=== PATIENT | female | born 1960 | race African-American/Black ===

== ENCOUNTER 2019-11-02 10:51 | Emergency (ER) | payer OTHER, SELFPAY ==
[2019-11-02 11:00] VITALS: BP 135/83; PULSE 63; RESP 18; TEMP 38.1; O2SAT 100
--- NOTE | 2019-11-02 12:10 | ED.URI ---
HPI - URI/Sore Throat General Chief Complaint: Upper Respiratory Infection Stated Complaint: Cough,Dizzy Source: patient Mode of arrival: ambulatory Limitations: no limitations History of Present Illness HPI Narrative: Patient is a 59-year-old female who presents complaining of cough, body aches, chills x1 day. She denies shortness of breath, denies chest pain, denies nausea, vomiting or diarrhea. She reports decreased p.o. intake. She denies taking aemm-kev-rzuqcum medications for symptom relief at this time. MD elicited complaint: cough Related Data Home Medications Medication Instructions Recorded Confirmed apixaban [Eliquis] 5 mg PO BID 08/09/19 11/02/19 atorvastatin 10 mg PO DAILY 11/02/19 11/02/19 losartan 100 mg PO DAILY 11/02/19 11/02/19 metformin 500 mg PO DAILY 11/02/19 11/02/19 metoprolol succinate 25 mg PO DAILY 11/02/19 11/02/19 Allergies Allergy/AdvReac Type Severity Reaction Status Date / Time lisinopril Allergy Intermediate Cough Verified 11/02/19 11:40 Review of Systems Review of Systems: Narrative: CONSTITUTIONAL: Denies fever, chills, or sweats. EYES: Denies visual changes, redness, or discharge. ENT: Denies rhinorrhea, congestion, sore throat, or otalgia. CARDIOVASCULAR: Denies chest pain, palpitations, or edema. RESPIRATORY: Reports cough, denies dyspnea. GASTROINTESTINAL: Denies abdominal pain, nausea, vomiting, or diarrhea. GENITOURINARY: Denies dysuria or hematuria. SKIN: Denies rash or itching. MUSCULOSKELETAL: Denies back pain, joint pain, or myalgia. NEUROLOGIC: Denies headache, numbness, dizziness, or weakness. PSYCHIATRIC: Denies anxiety or depression. ON LICENSE OF [facility] Past Medical History Medical History (Updated 11/02/19 @ 12:16 by ELMA Gray) A-fib Asthma Hypertension Surgical History Surgical History H/O cardiac radiofrequency ablation Social History Social History (Updated 11/02/19 @ 12:12 by ELMA Gray) Smoking status: Never smoker Alcohol intake: never Substance use: never Gender identity (if verbalized by the patient): Female Exam Narrative: Exam Narrative: GENERAL: Well-appearing, well-nourished, and in no acute distress. HEAD: Normocephalic, atraumatic. EYES: EOMI. No redness or drainage. Conjunctiva are normal. ENT: Mucous membranes pink and moist. Nares clear. No rhinorrhea. TMs normal bilaterally. Throat normal. Uvula midline. NECK: AROM. Supple. No lymphadenopathy. CHEST: No respiratory distress. Clear to auscultation. HEART: Regular rate and rhythm. No murmur appreciated. Normal peripheral pulses. SKIN: Warm, dry, no rash. NEURO: No focal deficits. Alert and oriented x3. Gait steady. PSYCH: Normal affect. No signs of depression or anxiety. Course Vital Signs Vital signs: Vital Signs Temperature 38.1 C H 11/02/19 11:00 Pulse Rate 63 11/02/19 11:00 Respiratory Rate 18 11/02/19 11:00 Blood Pressure 135/83 11/02/19 11:00 Pulse Oximetry 100 11/02/19 11:00 Temperature 38.1 C H 11/02/19 11:00 Pulse Rate 63 11/02/19 11:00 Respiratory Rate 18 11/02/19 11:00 Blood Pressure 135/83 11/02/19 11:00 Pulse Oximetry 100 11/02/19 11:00 Reviewed. Patient has been instructed to follow-up with her PCP regarding her blood pressure. MDM - URI/Sore Throat MDM Narrative Medical decision making narrative: Patient's influenza is negative. Patient most likely has viral illness. Patient cough to be treated as well as patient encouraged to Differential Diagnosis Differential diagnosis: Likely upper respiratory infection, viral infection and bronchitis Lab Data Labs: Influenza A Screen Negative Reference Range: Negative Influenza B Screen Negative Reference Range: Negative Critical Care Time Critical Care Time Critical Care Time: No Discharge Plan Discharge Clinical Impression: Upper respiratory in
== END 2019-11-02 12:21 | disposition home or self-care (01) ==
PROVIDERS: Emergency Provider Nurse Practitioner; PCP Family Medicine
DX: J06.9 Acute upper respiratory infection, unspecified (principal); I48.91 Unspecified atrial fibrillation; J45.909 Unspecified asthma, uncomplicated; I10 Essential (primary) hypertension
CPT/HCPCS: 87804; 99213; G0463

== ENCOUNTER 2020-06-16 16:27 | Emergency (ER) | payer OTHER, SELFPAY ==
[2020-06-16 16:37] VITALS: BP 141/75; PULSE 80; RESP 18; TEMP 36.9; O2SAT 100
[2020-06-16 16:43] VITALS: BP 141/75; PULSE 80; RESP 18; TEMP 36.9; O2SAT 100
--- NOTE | 2020-06-16 16:48 | ED.EAR ---
HPI - Ear Problem General Chief complaint: Ear Stated complaint: Left Ear Time Seen by Provider: 06/16/20 16:48 Source: patient and RN notes reviewed Mode of arrival: ambulatory Limitations: no limitations History of Present Illness HPI Narrative: 60-year-old female presents with concern for feeling of fluid in her left ear for several days. Reports yesterday 1 week history of nasal congestion, drainage. Reports occasional cough. Denies taking any xwin-kae-[id number] medications for her symptoms. Denies fever, shortness of breath, malaise, chills, sweats Complaint: ear pain Location: left ear Related Data Home Medications Medication Instructions Recorded Confirmed apixaban [Eliquis] 5 mg PO BID 08/09/19 11/02/19 losartan 100 mg PO DAILY 11/02/19 11/02/19 metformin 500 mg PO DAILY 11/02/19 11/02/19 metoprolol succinate 25 mg PO DAILY 11/02/19 11/02/19 Allergies Allergy/AdvReac Type Severity Reaction Status Date / Time lisinopril Allergy Intermediate Cough Verified 11/02/19 11:40 Review of Systems Review of Systems: Narrative: CONSTITUTIONAL: Denies malaise, chills, sweats, or fever. EYES: Denies visual changes, redness, or discharge. ENT: Reports rhinorrhea, congestion, fluid in the left ear. Denies sinus pain, otalgia and sore throat. CARDIOVASCULAR: Denies chest pain, palpitations, or edema. RESPIRATORY: Reports occasional cough. Denies dyspnea. GASTROINTESTINAL: Denies abdominal pain, nausea, vomiting, diarrhea SKIN: Denies rash or itching. MUSCULOSKELETAL: Denies myalgia. NEUROLOGIC: Denies headache. All systems reviewed & are unremarkable except as noted in HPI and below [facility] Past Medical History Medical History (Updated 06/16/20 @ 16:55 by Natalie Rodriguez NP) A-fib Asthma Hypertension Surgical History Surgical History H/O cardiac radiofrequency ablation Social History Social History (Updated 11/02/19 @ 12:12 by ELMA Gray) Smoking status: Never smoker Alcohol intake: never Substance use: never Gender identity (if verbalized by the patient): Female Comments At time of signature, agree with nursing past medical, surgical, social and family history. There is no relevant family history pertinent to the presenting complaint Exam Narrative: Exam Narrative: GENERAL: Well-appearing, well-nourished, and in no acute distress. HEAD: Normocephalic EYES: PERRLA, conjunctivae clear ENT: Nares clear, turbinates edematous and erythematous, clear discharge. Mucous membranes moist. TM pearly girard with sharp light reflex bilaterally; no tragal tenderness. Oropharynx not erythematous without lesions. Tonsils not enlarged and without exudate, no drooling, no hoarseness, no trismus, uvula midline. NECK: Supple. No lymphadenopathy CHEST: Clear to auscultation, breath sounds equal. No wheezing, rhonchi, rales, or stridor. No respiratory distress, speaks in full sentences. HEART: Regular rate and rhythm. No murmur heard. SKIN: Warm, dry, no rash. NEURO: Alert and oriented x3. PSYCH: Normal mood and affect Course Course Emergency Course: Patient is aware of diagnosis, understands and agrees to treatment plan. Anticipatory guidance given. Patient agrees to follow-up as directed and is aware of reasons to seek care at the emergency department. Portions of this record may have been created with voice recognition software Vital Signs Vital signs: Vital Signs Temperature 98.4 F 06/16/20 16:37 Pulse Rate 80 06/16/20 16:37 Respiratory Rate 18 06/16/20 16:37 Blood Pressure 141/75 H 06/16/20 16:37 Pulse Oximetry 100 06/16/20 16:37 Temperature 98.4 F 06/16/20 16:43 Pulse Rate 80 06/16/20 16:43 Respiratory Rate 18 06/16/20 16:43 Blood Pressure 141/75 H 06/16/20 16:43 Pulse Oximetry 100 06/16/20 16:43 Reviewed. Medical Decision Making MDM Narrative Medical decision making narrative: Differential diagnosis
== END 2020-06-16 17:03 | disposition home or self-care (01) ==
PROVIDERS: Emergency Provider Nurse Practitioner; PCP Family Medicine
DX: J06.9 Acute upper respiratory infection, unspecified (principal); R05 Cough; I48.91 Unspecified atrial fibrillation; J45.909 Unspecified asthma, uncomplicated; I10 Essential (primary) hypertension
CPT/HCPCS: 99213; G0463

== ENCOUNTER 2020-09-08 14:46 | Emergency (ER) | payer OTHER, SELFPAY ==
[2020-09-08 14:56] VITALS: BP 174/85; PULSE 67; RESP 18; TEMP 37; O2SAT 100
--- NOTE | 2020-09-08 15:20 | ED.DENTAL ---
HPI - Dental/Oral General Chief complaint: Dental/Oral Stated complaint: tooth pain History of Present Illness HPI Narrative: This is a 60-year-old -Ni[place] female that noted that earlier this month her back teeth broke off. Today she woke up with swollen gums and achy this to her tooth and gums. She had is at tooth #17,19 in . She did take Tylenol at home to relieve the pain with no relief. She has no obvious drainage at gum site. The patient denies SOB, CP, palpitation, extremity numbness, lightheadedness, dizziness, constipation, diarrhea, chills, or fever. She has been advised to consult a dentist after completion of her antibiotics Teeth map: 1. Dental decay 2. Dental decay 3. Dental decay Related Data Home Medications Medication Instructions Recorded Confirmed apixaban [Eliquis] 5 mg PO BID 08/09/19 11/02/19 losartan 100 mg PO DAILY 11/02/19 11/02/19 metformin 500 mg PO DAILY 11/02/19 11/02/19 metoprolol succinate 25 mg PO DAILY 11/02/19 11/02/19 Allergies Allergy/AdvReac Type Severity Reaction Status Date / Time lisinopril Allergy Intermediate Cough Verified 11/02/19 11:40 Review of Systems Review of Systems: All systems reviewed & are unremarkable except as noted in HPI and below [facility] Past Medical History Medical History A-fib Asthma Hypertension Surgical History Surgical History H/O cardiac radiofrequency ablation Social History Social History Smoking status: Never smoker Alcohol intake: never Substance use: never Gender identity (if verbalized by the patient): Female Exam Narrative: Exam Narrative: GENERAL: This is a well-nourished, well-developed patient, in no apparent distress. HEAD: normocephalic, atraumatic. EYES: PERRL. Sclera clear/white. Vision is grossly intact. EARS: External ears normal, auditory canals clear and without drainage, TMs normal without perforation. Hearing grossly intact. NOSE: External nose normal with no obvious nasal discharge, nares without redness, no rhinorrhea. THROAT: Mucous membranes moist, posterior pharynx clear. Cavity at tooth #17, 19, 20 with edematous and erythema at gumline NECK: Neck supple, non-tender without lymphadenopathy, masses or thyromegaly. CARDIOVASCULAR: Regular rate and rhythm without murmurs, gallops, or rubs. RESPIRATORY: Clear to auscultation. Breath sounds equal bilaterally. No wheezes, rales, or rhonchi. GASTROINTESTINAL: Abdomen soft, non-tender, nondistended. Bowel sounds are active. No hepato-splenomegaly, or palpable masses. No guarding. SKIN: warm, intact with no suspicious lesions or rash, good texture and turgor. NEURO: awake, alert, and oriented to person, place and time. There were no obvious focal neurologic abnormalities. Steady gait EXTREMITIES: Normal range of motion. No edema. No calf tenderness. Negative Homans sign bilaterally. BACK: Nontender without deformity or crepitance. No flank tenderness. Course Course Emergency Course: Patient was discharged with antibiotics pain medication and advised to consult a dentist Vital Signs Vital signs: Vital Signs Temperature 98.6 F 09/08/20 14:56 Pulse Rate 67 09/08/20 14:56 Respiratory Rate 18 09/08/20 14:56 Blood Pressure 174/85 H 09/08/20 14:56 Pulse Oximetry 100 09/08/20 14:56 Temperature 98.6 F 09/08/20 14:56 Pulse Rate 67 09/08/20 14:56 Respiratory Rate 18 09/08/20 14:56 Blood Pressure 174/85 H 09/08/20 14:56 Pulse Oximetry 100 09/08/20 14:56 MDM - Dental/Oral Differential Diagnosis Differential diagnosis: Likely gingival abscess, dental caries, toothache and dental abscess Discharge Plan Discharge Clinical Impression: Toothache, Dental caries Patient Disposition: Home, Self-Care Condition: Stable Instructions: Antibiotic
== END 2020-09-08 15:31 | disposition home or self-care (01) ==
PROVIDERS: Emergency Provider Nurse Practitioner; PCP Family Medicine
DX: K02.9 Dental caries, unspecified (principal); I48.91 Unspecified atrial fibrillation; J45.909 Unspecified asthma, uncomplicated; I10 Essential (primary) hypertension
CPT/HCPCS: 99213; G0463

== ENCOUNTER 2020-09-21 15:10 | Emergency (ER) | payer MEDICARE, MEDICAID, SELFPAY ==
[2020-09-21 15:23] VITALS: BP 157/81; PULSE 75; RESP 16; TEMP 36.5; O2SAT 100
--- NOTE | 2020-09-21 15:31 | ED.LOWEXIN ---
HPI - Extremity Injury (Lower) General Chief Complaint: Extremity Injury, Lower Stated Complaint: Bruised Knee Time Seen by Provider: 09/21/20 15:31 Source: patient and RN notes reviewed History of Present Illness HPI Narrative: Patient is a 60-year-old female who presents the urgent care with complaints of a bruised left knee . Patient states that she noticed it yesterday. States that she has having her house remodeled and has been sleeping on an air mattress at her daughter's house which tends to deflate while she sleeping. Patient is unsure if she hit the knee but is on a blood thinner. States that she has never had any issues in the past with increased bruising or bleeding. Denies of any known trauma or injury. Currently denies of any pain. Patient has not taken anything new [id number]. No other acute complaints. No acute distress noted. Patient aware of the plan of care. Some parts of this dictation were generated by voice recognition software and may contain typographical and/or grammatical inaccuracies. Related Data Home Medications Medication Instructions Recorded Confirmed apixaban [Eliquis] 5 mg PO BID 08/09/19 11/02/19 losartan 100 mg PO DAILY 11/02/19 11/02/19 metformin 500 mg PO DAILY 11/02/19 11/02/19 metoprolol succinate 25 mg PO DAILY 11/02/19 11/02/19 Allergies Allergy/AdvReac Type Severity Reaction Status Date / Time lisinopril Allergy Intermediate Cough Verified 11/02/19 11:40 Review of Systems Review of Systems: Narrative: CONSTITUTIONAL: Denies fever, chills, or sweats. EYES: Denies visual changes, redness, or discharge. ENT: Denies rhinorrhea, congestion, sore throat, or otalgia. CARDIOVASCULAR: Denies chest pain, palpitations, or edema. RESPIRATORY: Denies cough or dyspnea. GASTROINTESTINAL: Denies abdominal pain, nausea, vomiting, or diarrhea. GENITOURINARY: Denies dysuria or hematuria. SKIN: Reports of bruising to the left knee MUSCULOSKELETAL: Denies back pain, joint pain, or myalgia. NEUROLOGIC: Denies headache, numbness, or weakness. All other systems reviewed are negative, except as documented in HPI. [facility] Past Medical History Medical History A-fib Asthma Hypertension Surgical History Surgical History H/O cardiac radiofrequency ablation Social History Social History Smoking status: Never smoker Alcohol intake: never Substance use: never Gender identity (if verbalized by the patient): Female Comments At the time of my signature, I reviewed and agree with the nursing past medical, surgical, social, and family history. There is no relevant family history pertinent to the patient complaint. Exam Narrative: Exam Narrative: GENERAL: This is a well-nourished, well-developed patient, in no apparent distress. HEAD: normocephalic, atraumatic. EYES: PERRL. Sclera clear/white. Vision is grossly intact. EARS: External ears normal NOSE: External nose normal with no obvious nasal discharge, nares without redness, no rhinorrhea. THROAT: Mucous membranes moist NECK: Neck supple SKIN: Approximately 3-4cm of irregular/discolored slightly ecchymotic area to the lateral left knee. Warm, intact with no suspicious lesions or rash, good texture and turgor. NEURO: awake, alert, and oriented to person, place and time. There were no obvious focal neurologic abnormalities. EXTREMITIES: No clubbing, cyanosis, or edema. No joint tenderness, effusion, or edema noted. No calf tenderness. Negative Homans sign bilaterally. No obvious deformity noted to the left lower extremity. Range of motion to left lower extremity within normal limits without any difficulty or exacerbated pain with ambulation/range of motion. Course Vital Signs Vital signs: Vital Signs Temperature 97.7 F 09/21/20 15:23 Pulse Rate 75
== END 2020-09-21 15:48 | disposition home or self-care (01) ==
PROVIDERS: Emergency Provider Nurse Practitioner Family; PCP Family Medicine
DX: L81.9 Disorder of pigmentation, unspecified (principal); I48.91 Unspecified atrial fibrillation; J45.909 Unspecified asthma, uncomplicated; I10 Essential (primary) hypertension
CPT/HCPCS: 99212; G0463

== ENCOUNTER 2021-03-16 11:33 | Emergency (ER) | payer MEDICARE, MEDICAID, SELFPAY ==
[2021-03-16 11:43] VITALS: BP 147/85; PULSE 68; RESP 16; TEMP 35.9; O2SAT 98
--- NOTE | 2021-03-16 11:46 | ED.GENADULT ---
HPI - General Adult General Chief complaint: Extremity Injury, Lower Stated complaint: cut left heel Time Seen by Provider: 03/16/21 11:47 Source: patient and RN notes reviewed Mode of arrival: ambulatory Limitations: no limitations History of Present Illness HPI narrative: 61-year-old -[place] female presents with a wound to the left heel with tenderness and intermittent drainage for the past 6-7 days. ?Yael reports carrying a bag and it hit LT heel causing laceration. ?Believes peroxide has caused the area to become tender. ?Denies erythema or swelling to the area. ?No streaking. ?Denies fever or chills. ?Denies nausea, vomiting, and abdominal pain. ?Tolerating liquids well. ?Tetanus not up-to-date. ?Remains active. ?The patient reports she has not been diagnosed with COVID-19. ?The patient reports she received 2 [employer] COVID-19 vaccines. ?The patient reports she is not waiting for the results of a COVID-19 lab test. ?The patient reports she does not have chills, weakness, or fatigue. ?The patient reports she does not have a new or worsening cough or shortness of breath. ?Denies chest pain. ?The patient reports she does not have any rhinorrhea, congestion, sore throat, loss of taste or smell, and diarrhea. ?Denies recent traveling. ?Denies concerns for COVID-19 or exposures. ?At this time, the patient is not suspected of having COVID-19. Some parts of this dictation were generated by voice recognition software and may contain typographical and/or grammatical inaccuracies.? Related Data Home Medications Medication Instructions Recorded Confirmed apixaban [Eliquis] 1 mg PO BID 03/16/21 03/16/21 atorvastatin 1 mg PO DAILY 03/16/21 03/16/21 losartan 1 mg PO DAILY 03/16/21 03/16/21 metformin 1 mg PO TID 03/16/21 03/16/21 metoprolol succinate 1 mg PO DAILY 03/16/21 03/16/21 Allergies Allergy/AdvReac Type Severity Reaction Status Date / Time lisinopril Allergy Intermediate Cough Verified 03/16/21 11:47 Review of Systems Review of Systems: Narrative: CONSTITUTIONAL: Denies fever, chills, sweats. EYES: Denies visual changes, redness, discharge. ENT: Denies rhinorrhea, congestion, sore throat, otalgia. CARDIOVASCULAR: Denies chest pain, palpitations, edema. RESPIRATORY: Denies dyspnea, wheezing, cough. GASTROINTESTINAL: Denies abdominal pain, nausea, vomiting, diarrhea. GENITOURINARY: Denies dysuria, hematuria, abnormal discharge SKIN: Complains of wound to left heel with tenderness and intermittent drainage. Denies erythema. MUSCULOSKELETAL: Denies acute back pain, joint pain, or myalgia. NEUROLOGIC: Denies numbness or focal weakness. PSYCHIATRIC: Denies anxiety or depression. All other systems reviewed are negative, except as documented in HPI and below. [facility] Past Medical History Medical History A-fib Asthma Hypertension Surgical History Surgical History H/O cardiac radiofrequency ablation Family History Family History (Updated 03/16/21 @ 12:01 by ELMA Good) Father Diabetes mellitus Mother Cerebrovascular accident Social History Social History Smoking status: Never smoker Alcohol intake: never Substance use: never Gender identity (if verbalized by the patient): Female Comments At time of signature, agree with the nurse past medical, surgical, social, and family history. There is no relevant family history pertinent to the presenting complaint. Exam Narrative: Exam Narrative: GENERAL: This is a well-nourished, well-developed patient, in no apparent distress. Talks in full sentences and ambulates with steady gait without dyspnea. HEAD: Normocephalic, atraumatic. EYES: PERRL. Sclera clear/white. Vision is grossly intact. CARDIOVASCULAR: Regular rate and rhythm without murmurs, gallops, or rubs. RESPIRATORY
[2021-03-16] MEDS: TETANUS,DIPHTHERIA,AC PERTUSSIS ADULT (0.5 ML) BOOSTRIX IM (11:58)
[2021-03-16 12:04] VITALS: BP 140/90
--- NOTE | 2021-03-16 13:13 | PC.NURSE ---
1313- Rx called into [facility] pharmacy in [place].
== END 2021-03-16 12:15 | disposition home or self-care (01) ==
PROVIDERS: Emergency Provider Nurse Practitioner Family; PCP Family Medicine
DX: S91.332A Puncture wound without foreign body, left foot, initial encounter (principal); W45.8XXA Other foreign body or object entering through skin, initial encounter; Z23 Encounter for immunization; I48.91 Unspecified atrial fibrillation; J45.909 Unspecified asthma, uncomplicated; I10 Essential (primary) hypertension
CPT/HCPCS: 90471; 90715; 99213; G0463

== ENCOUNTER 2022-05-11 16:57 | Emergency (ER) | payer MEDICARE, MEDICAID, SELFPAY ==
[2022-05-11 17:10] VITALS: BP 151/84; PULSE 72; RESP 18; TEMP 36.6; O2SAT 100
--- NOTE | 2022-05-11 17:28 | ED.FEMALEGU ---
HPI - Female Genitourinary General Chief complaint: Urogenital-Female Stated complaint: uti Time Seen by Provider: 05/11/22 17:28 Source: patient, RN notes reviewed and old records reviewed Mode of arrival: ambulatory Limitations: no limitations History of Present Illness HPI Narrative: 62-year-old female presents to the [facility] with concerns over a UTI and vaginal itching. Patient states about a week ago with external itching has proceeded to feel more internal. Denies any fevers, chest pain, CVA tenderness, abdominal pain, nausea or vomiting. Has a history of high blood pressure, irregular heartbeat, high cholesterol and diabetes Related Data Home Medications Medication Instructions Recorded Confirmed apixaban 5 mg tablet (Eliquis) 1 mg PO BID 03/16/21 05/11/22 atorvastatin 10 mg tablet 1 mg PO DAILY 03/16/21 05/11/22 losartan 100 mg tablet 1 mg PO DAILY 03/16/21 05/11/22 metformin 500 mg tablet 1 mg PO TID 03/16/21 05/11/22 metoprolol succinate 25 mg 1 mg PO DAILY 03/16/21 05/11/22 tablet,extended release 24 hr Allergies Allergy/AdvReac Type Severity Reaction Status Date / Time lisinopril Allergy Intermediate Cough Verified 05/11/22 17:06 Review of Systems Review of Systems: All systems reviewed & are unremarkable except as noted in HPI and below Constitutional: Constitutional: Reports no additional constitutional complaints, Denies chills and Denies fatigue Eyes: Eyes: Reports no additional eye complaints ENT: Reports system reviewed and no additional complaints, except as documented Cardiovascular: Cardiovascular: Reports no additional cardiovascular complaints Respiratory: Respiratory: Reports no additional respiratory complaints Gastrointestinal: Gastrointestinal: Reports no additional gastrointestinal complaints, Denies abdominal pain, Denies diarrhea, Denies nausea and Denies vomiting Genitourinary: Genitourinary: Reports as per HPI, Denies hematuria, Reports dysuria, Denies flank pain, Reports urinary urgency, Denies vaginal discharge and Reports vaginal pruritus Musculoskeletal: Musculoskeletal: Reports no additional musculoskeletal complaints and Denies back pain Integumentary/Breasts: Skin/Breast: Reports system reviewed and no additional complaints, except as docu Neurologic: Reports system reviewed and no additional complaints, except as documented Psychiatric: Psychiatric: Reports no additional psychiatric complaints Endocrine: Endocrine: Denies fatigue Allergic/Immunologic: Allergic/Immunologic: Reports no additional allergic/immunologic complaints PMFSH Past Medical History Medical History A-fib Asthma Hypertension Surgical History Surgical History H/O cardiac radiofrequency ablation Family History Family History Father Diabetes mellitus Mother Cerebrovascular accident Social History Social History Smoking status: Never smoker Alcohol intake: never Substance use: never Gender identity (if verbalized by the patient): Female Comments At the time of my signature, I reviewed and agree with the nursing past medical, surgical, social, and family history. There is no relevant family history pertinent to the patient complaint. Exam Const: General: healthy appearing, no acute distress and alert Nutritional Appearance: well nourished and obese Orientation/consciousness: patient oriented x3 Limitations: no limitations HENMT: Head: normal to inspection Eyes: Conjunctivae: conjunctivae normal Pupils: Equal, round and reactive pupils present Neck: Neck: normal visual inspection, no lymphadenopathy and no meningeal signs Chest: Chest palpation & inspection: normal inspection of the chest and abnormal inspection of the chest Resp: Effo
== END 2022-05-11 17:42 | disposition home or self-care (01) ==
PROVIDERS: Emergency Provider Nurse Practitioner; PCP Family Medicine
DX: N39.0 Urinary tract infection, site not specified (principal); I48.91 Unspecified atrial fibrillation; I10 Essential (primary) hypertension; J45.909 Unspecified asthma, uncomplicated
CPT/HCPCS: 81003; 87086; 87088; 99213; G0463

== ENCOUNTER 2022-06-14 16:14 | Emergency (ER) | payer MEDICARE, MEDICAID, SELFPAY ==
[2022-06-14 16:26] VITALS: BP 139/92; PULSE 69; RESP 16; TEMP 37; O2SAT 100
--- NOTE | 2022-06-14 16:36 | ED.GENADULT ---
HPI - General Adult General Chief complaint: Back Pain/Injury Stated complaint: Right Side Pain Time Seen by Provider: 06/14/22 16:36 Source: patient, RN notes reviewed and old records reviewed Mode of arrival: ambulatory Limitations: no limitations History of Present Illness HPI narrative: 62-year-old female presents to the [facility] with complaints of right lower back pain since waking up this morning. No loss or retention of bowel or bladder. States she has been moving and lifting a lot of heavy objects. Denies any midline tenderness. Denies any loss or retention of bowel or bladder. No pelvic pain. No abdominal pain. No chest pain or shortness of breath. No urinary symptoms Related Data Home Medications Medication Instructions Recorded Confirmed apixaban 5 mg tablet (Eliquis) 1 mg PO BID 03/16/21 06/14/22 atorvastatin 10 mg tablet 1 mg PO DAILY 03/16/21 06/14/22 losartan 100 mg tablet 1 mg PO DAILY 03/16/21 06/14/22 metformin 500 mg tablet 1 mg PO TID 03/16/21 06/14/22 metoprolol succinate 25 mg 1 mg PO DAILY 03/16/21 06/14/22 tablet,extended release 24 hr Allergies Allergy/AdvReac Type Severity Reaction Status Date / Time lisinopril Allergy Intermediate Cough Verified 06/14/22 16:21 Review of Systems Review of Systems: All systems reviewed & are unremarkable except as noted in HPI and below Constitutional: Constitutional: Reports no additional constitutional complaints, Denies chills and Denies fever(s) Eyes: Eyes: Reports no additional eye complaints ENT: Reports system reviewed and no additional complaints, except as documented Cardiovascular: Cardiovascular: Reports no additional cardiovascular complaints Respiratory: Respiratory: Reports no additional respiratory complaints Gastrointestinal: Gastrointestinal: Reports no additional gastrointestinal complaints Musculoskeletal: Musculoskeletal: Reports as per HPI and Reports back pain (Right lower back) Integumentary/Breasts: Skin/Breast: Reports system reviewed and no additional complaints, except as docu Neurologic: Reports system reviewed and no additional complaints, except as documented Psychiatric: Psychiatric: Reports no additional psychiatric complaints Allergic/Immunologic: Allergic/Immunologic: Reports no additional allergic/immunologic complaints PMFSH Past Medical History Medical History A-fib Asthma Hypertension Surgical History Surgical History H/O cardiac radiofrequency ablation Family History Family History Father Diabetes mellitus Mother Cerebrovascular accident Social History Social History Smoking status: Never smoker Alcohol intake: never Substance use: never Gender identity (if verbalized by the patient): Female Comments At the time of my signature, I reviewed and agree with the nursing past medical, surgical, social, and family history. There is no relevant family history pertinent to the patient complaint. Exam Const: General: healthy appearing, no acute distress, alert and well nourished Nutritional Appearance: well nourished Orientation/consciousness: patient oriented x3 Limitations: no limitations HENMT: Head: normal to inspection Ears: external ears normal Eyes: General: appearance normal, both eyes and all related structures Pupils: Equal, round and reactive pupils present Neck: Neck: normal visual inspection, no lymphadenopathy and no meningeal signs Chest: Chest palpation & inspection: normal inspection of the chest Resp: Effort & Inspection: normal respiratory effort and no use of accessory muscles Auscultation: clear to auscultation bilaterally, no crackles, no rales, no rhonchi and no wheezes Cardio: Rate: regular rate Rhythm: regular rhythm GI:
== END 2022-06-14 16:43 | disposition home or self-care (01) ==
PROVIDERS: Emergency Provider Nurse Practitioner; PCP Family Medicine
DX: M54.50 Low back pain, unspecified (principal); I48.91 Unspecified atrial fibrillation; J45.909 Unspecified asthma, uncomplicated; I10 Essential (primary) hypertension
CPT/HCPCS: 99213; G0463

== ENCOUNTER 2022-11-30 10:37 | Emergency (ER) | payer MEDICARE, MEDICAID, SELFPAY ==
--- NOTE | ~2022-11-30 | XR_ITS ---
Left Knee Technique: AP, lateral, and oblique views were obtained. Clinical History: Pain Findings: No fracture or dislocation is seen. Osseous alignment is anatomic. Mild tricompartmental de generative spurring noted. Small joint effusion is seen. Impression: Mild tricompartmental degenerative spurring. Small joint effusion. Reviewed, dictated and finalized at [facility]. Impression: Mild tricompartmental degenerative spurring. Small joint effusion.
[2022-11-30 10:50] VITALS: BP 157/102; PULSE 79; RESP 14; TEMP 36.7; O2SAT 100
--- NOTE | 2022-11-30 11:02 | ED.LOWEXIN ---
HPI - Extremity Injury (Lower) General Chief Complaint: Extremity Injury, Lower Stated Complaint: fall injury to knees. possible uti Time Seen by Provider: 11/30/22 11:02 Source: patient Mode of arrival: ambulatory Limitations: no limitations History of Present Illness HPI Narrative: 62-year-old female presents with complaint left knee pain for 2 days. Reports that she was walking around her car and slipped in mud and fell onto left knee. Does report a history of osteoarthritis to both knees. Ambulatory with steady gait. No instability. Is currently using 1 crutch to help take weight off left leg for pain. States prior to this she was using to crutches. Also reports vaginal itching and white discharge. Is concerned that she has a yeast infection. Is requesting Diflucan. All systems reviewed and negative except as noted above. Related Data Home Medications Medication Instructions Recorded Confirmed apixaban 5 mg tablet (Eliquis) 1 mg PO BID 03/16/21 11/30/22 atorvastatin 10 mg tablet 1 mg PO DAILY 03/16/21 11/30/22 losartan 100 mg tablet 1 mg PO DAILY 03/16/21 11/30/22 metformin 500 mg tablet 1 mg PO TID 03/16/21 11/30/22 metoprolol succinate 25 mg 1 mg PO DAILY 03/16/21 11/30/22 tablet,extended release 24 hr Allergies Allergy/AdvReac Type Severity Reaction Status Date / Time lisinopril Allergy Intermediate Cough Verified 11/30/22 10:46 Review of Systems Review of Systems: CONSTITUTIONAL: Denies fever, chills, or sweats. EYES: Denies visual changes, redness, or discharge. ENT: Denies rhinorrhea, congestion, sore throat, or otalgia. CARDIOVASCULAR: Denies chest pain, palpitations, or edema. RESPIRATORY: Denies cough or dyspnea. GASTROINTESTINAL: Denies abdominal pain, nausea, vomiting, or diarrhea. GENITOURINARY: Denies dysuria or hematuria. Reports vaginal itching and white discharge. SKIN: Denies rash or itching. MUSCULOSKELETAL: Denies back pain or myalgia. Reports left knee pain. NEUROLOGIC: Denies headache, numbness, or weakness. PSYCHIATRIC: Denies anxiety or depression. All other systems reviewed are negative, except as documented in HPI. [facility] Past Medical History Medical History A-fib Asthma Hypertension Surgical History Surgical History H/O cardiac radiofrequency ablation Family History Family History Father Diabetes mellitus Mother Cerebrovascular accident Social History Social History Smoking status: Never smoker Alcohol intake: never Substance use: never Gender identity (if verbalized by the patient): Female Comments At time of signature, agree with nursing past medical, surgical, social and family history. There is no relevant family history pertinent to the presenting complaint. Exam Narrative: GENERAL: This is a well-nourished, well-developed patient, in no apparent distress. HEAD: normocephalic, atraumatic. EYES: PERRL. Sclera clear/white. Vision is grossly intact. EARS: External ears normal NOSE: External nose normal NECK: Neck supple, non-tender without lymphadenopathy, masses or thyromegaly. CARDIOVASCULAR: Regular rate and rhythm without murmurs, gallops, or rubs. RESPIRATORY: Clear to auscultation. Breath sounds equal bilaterally. No wheezes, rales, or rhonchi. SKIN: warm, Dry, intact with no suspicious lesions or rash, good texture and turgor. NEURO: awake, alert, and oriented to person, place and time. There were no obvious focal neurologic abnormalities. EXTREMITIES: Mild swelling noted to anterior aspect left knee with tenderness on palpation to medial aspect. No fluctuation. Instability. Negative anterior posterior drawer testing. Vaginal exam deferred by patient. Course Course Level of Care: Express Care
== END 2022-11-30 11:49 | disposition home or self-care (01) ==
PROVIDERS: Emergency Provider Nurse Practitioner Family; PCP Family Medicine
DX: M25.462 Effusion, left knee (principal); B37.31 Acute candidiasis of vulva and vagina; I48.91 Unspecified atrial fibrillation; I10 Essential (primary) hypertension; J45.909 Unspecified asthma, uncomplicated; Z79.01 Long term (current) use of anticoagulants; W01.0XXA Fall on same level from slipping, tripping and stumbling without subsequent striking against object, initial encounter
CPT/HCPCS: 73564; 99213; G0463

== ENCOUNTER 2023-02-06 12:31 | Emergency (ER) | payer MEDICARE, MEDICAID, SELFPAY ==
[2023-02-06 12:46] VITALS: BP 133/84; PULSE 82; RESP 12; TEMP 36.6; O2SAT 100
--- NOTE | 2023-02-06 13:33 | ED.ABDPAIN ---
HPI - Abdominal Pain General Chief Complaint: Abdominal Pain Stated Complaint: Constipation Time Seen by Provider: 02/06/23 13:33 Source: patient and RN notes reviewed Mode of arrival: ambulatory Limitations: no limitations History of Present Illness HPI narrative: 63-year-old female with history of diabetes and atrial fibrillation presenting for complaint of constipation for about 3 days. She endorses feels that she has pressure at the rectum, but is unable to remove it manually. Denies associated abdominal pain, nausea, vomiting, diarrhea, hematochezia or melena. Denies significant history of constipation. Denies abdominal surgeries. Has not taken anything for constipation. Related Data Home Medications Medication Instructions Recorded Confirmed apixaban 5 mg tablet (Eliquis) 5 mg PO BID 03/16/21 02/06/23 atorvastatin 10 mg tablet 10 mg PO DAILY 03/16/21 02/06/23 losartan 100 mg tablet 100 mg PO DAILY 03/16/21 02/06/23 metformin 500 mg tablet 500 mg PO TID 03/16/21 02/06/23 metoprolol succinate 25 mg 25 mg PO DAILY 03/16/21 02/06/23 tablet,extended release 24 hr Allergies Allergy/AdvReac Type Severity Reaction Status Date / Time lisinopril Allergy Intermediate Cough Verified 02/06/23 12:44 Review of Systems Review of Systems: CONSTITUTIONAL: Denies body aches, fever, chills ENT: Denies rhinorrhea, congestion CARDIOVASCULAR: Denies chest pain, palpitations, or edema. RESPIRATORY: Denies cough or dyspnea. GASTROINTESTINAL: Endorses constipation, denies abdominal pain, nausea, vomiting, diarrhea, hematochezia, melena GENITOURINARY: Denies dysuria, hematuria, or CVA tenderness. SKIN: Denies rash, itching, or wounds. MUSCULOSKELETAL: Denies back pain, joint pain, or myalgia. NEUROLOGIC: Denies headache, numbness, tingling, or weakness. All systems reviewed & are unremarkable except as noted in HPI and below PMFSH Past Medical History Medical History A-fib Asthma Diabetes Hypertension Surgical History Surgical History H/O cardiac radiofrequency ablation Family History Family History Father Diabetes mellitus Mother Cerebrovascular accident Social History Social History Smoking status: Never smoker Alcohol intake: never Substance use: never Gender identity (if verbalized by the patient): Female Comments At time of signature, I have reviewed and agree with nursing past medical, surgical, social and family history unless otherwise noted. Please see nursing chart for further information. There is no relevant family history pertinent to the presenting complaint Exam Narrative: GENERAL: Well-appearing, and in no acute distress. EYES: EOMI. Conjunctivae normal. ENT: Mucous membranes pink and moist. CHEST: No respiratory distress. Clear to auscultation. HEART: Regular rate and rhythm. No murmur appreciated. Normal peripheral pulses. ABDOMEN: abd soft, nondistended, normal active bowel sounds. Nontender abdomen, No guarding, rebound tenderness, asymmetry EXTREMITIES: Normal range of motion. No edema. SKIN: Warm, dry, no rash. Capillary refill normal. Normal skin turgor. NEURO: No focal deficits. Alert and oriented x3. PSYCH: Normal affect. Course Course Emergency Course: Patient is aware of diagnosis, understands and agrees to treatment plan. Anticipatory guidance given. Patient agrees to follow-up as directed and is aware of reasons to seek care at the emergency department. Portions of this record may have been created with voice recognition software Level of Care: Express Care Visit Vital Signs Vital signs: Vital Signs Temperature 97.9 F 02/06/23 12:46 Pulse Rate 82 02/06/23 12:46 Respiratory Rate 12 02/06/23 12:46
== END 2023-02-06 13:48 | disposition home or self-care (01) ==
PROVIDERS: Emergency Provider Nurse Practitioner Family; PCP Family Medicine
DX: K59.00 Constipation, unspecified (principal); I48.91 Unspecified atrial fibrillation; J45.909 Unspecified asthma, uncomplicated; E11.9 Type 2 diabetes mellitus without complications; I10 Essential (primary) hypertension
CPT/HCPCS: 99213; G0463